=== PATIENT | female | born 1980 | race Caucasian/White ===

== ENCOUNTER 2018-06-08 09:09 | Emergency (ER) | payer MEDICAID ==
[2018-06-08] MEDS: HYDROCODONE/APAP (10/325) TAB PO (09:33)
[2018-06-08] MEDS: MECLIZINE 12.5 MG TAB PO (09:33)
[2018-06-08] MEDS: ONDANSETRON (ODT) 4 MG TAB ODT (09:34)
[2018-06-08] MEDS: NICARDipine HCL 30 MG CAPSULE PO (09:34)
== END 2018-06-08 12:32 | disposition home or self-care (01) ==
LOC: E/R 09:09
DX: I10 Essential (primary) hypertension (principal); R40.2142 Coma scale, eyes open, spontaneous, at arrival to emergency department; R40.2252 Coma scale, best verbal response, oriented, at arrival to emergency department; R40.2362 Coma scale, best motor response, obeys commands, at arrival to emergency department
CPT/HCPCS: 70450; 81025; 84703; 99284-25

== ENCOUNTER 2019-01-15 17:11 | Emergency (ER) | payer MEDICAID | END 2019-01-15 17:52 | disposition home or self-care (01) | LOC: E/R 17:11 | DX: K52.9 Noninfective gastroenteritis and colitis, unspecified (principal); I10 Essential (primary) hypertension | CPT/HCPCS: 99283; Z7502 ==